=== PATIENT | female | born 1990 | race Caucasian/White ===

== ENCOUNTER 2018-02-13 03:07 | Inpatient (IN) | payer OTHER ==
--- NOTE | 2018-02-13 08:49 | HP ---
General Information - Reason for Visit SROM and contractions - General Information Maternal Age: 27 Grav: 1 Para: 0 SAB: 0 IEA: 0 Estimated Due Date: 02/12/18 Determined By: Early Ultrasound Maternal Blood Type and Rh: A Negative - Results this Serology/RPR Result: Non-Reactive Rubella Result: Immune HBsAg Result: Negative HIV Result: Negative GBS Culture Result: Negative Past Medical History Delivery History: See Records - primiparous Pertinent Past Medical History: See Records - vasovagal seizures Pertinent Past Surgical History: None Pertinent Family History: Non-Contributory - Antepartal Records Antepartal Records: Reviewed, Uncomplicated - Rh- Review of Systems Constitutional: Uncomfortable - coping well CV Complaint: No Respiratory: Shortness of Breath: No Gastrointestinal: No Nausea/Vomiting, Normal Bowel Movement Genitourinary: Leaking Fluid, No Dysuria, No Bleeding Musculoskeletal: No Epigastric Pain, Contractions Neurological: No Headache, No Visual Changes Movement: Normal Exam Allergies/Adverse Reactions: Allergies Sulfa (Sulfonamide Antibiotics) Allergy (Verified 02/13/18 07:42) Unknown Reaction Details Vital Signs 02/13/18 03:32 Temperature 97.4 F Pulse Rate 60 Respiratory 16 Rate Blood Pressure 144/99 (mmHg) O2 Sat by Pulse 100 Oximetry - Measurements Height: 5 ft 7 in Weight: 68.039 kg Weight in lbs: 150.159003 Body Mass Index (BMI): 23.5 Pre- Weight: 48.988 kg Weight Gained This : 42 lbs and 0 ozs - Exam Breast: Breast Exam Deferred CVA: No CVA Tenderness Extremities: No Edema Heart: Normal Rhythm/Heart Sounds HEENT: No Significant Findings Lungs: Clear Bilaterally Rectal: Rectal Exam Deferred Reflexes: DTR 2+ Thyroid: No Thyromegaly - Abdominal Exam Abdomen Exam: Non-Tender, Fundal Height Consistent with Dates Targeted Exam Findings See L&D Outpatient Visit Provider Note for Findings: N/A Estimated Weight: 6.5# Membrane Status: SROM Amniotic Fluid Evaluation: Gross Rupture - cervical exam deferred EFM Findings - External Monitor Findings Baseline Heart Rate: 130 External Monitor Findings: Accelerations Present, No Pattern of Variable or Late Decelerations, Variability Moderate, Baseline Stable Contractions: Regular - 2-4 , Mild, Moderate, < 45 Seconds, 45-90 Seconds Assessment/Plan - Assessment 27 year old at 40 1/7 w/ SROM, no evidence of acidemia - Plan Plan: Admit - Anticipate Vaginal Delivery - Date/Time of Admission Date of Admission: 02/13/18 Time of Admission: 03:51
--- NOTE | 2018-02-13 11:35 | PN ---
Progress Note - Progress Note Date of Service: 02/13/18 SOAP: Subjective: [Feeling UCs are getting stronger, would like VE to assess for possible epidural ] Objective: [VSS VE 2cm/90%/vertex 0 FHT 155 via doppler] Assessment: [early labor] Plan: [Encourage movement, position changes. Discussed possibility of nubain/ phenergan if desires rest. Would like to try nitrous for now]
[2018-02-13 12:30] LABS: ABS Basophils 0.1 10^3/ul (0-0.2); ABS Eosinophils 0 10^3/ul (0-0.6); ABS Monocytes 0.8 10^3/ul (0-0.8); ABS Neutrophils 8.3 10^3/ul (1.5-7.7); ABS Nucleated RBC 0 10^3/ul; Eosinophil % 0.1 % (0-6); Hematocrit 38 % (35-47); Hemoglobin 13.7 g/dl (12.0-16.0); Lymphocyte % 10.1 % (25-47); Mean Corpuscular HGB Conc 36 g/dl (31-36); Mean Corpuscular Hemoglobin 35 pg (27-31); Mean Corpuscular Volume 96 fL (80-97); Mean Platelet Volume 8.9 um3 (7.4-10.4); Nucleated Red Blood Cells % 0; Platelet Count 177 10^3/ul (150-450); Red Blood Count 3.98 10^6/ul (4.00-5.40); Red Cell Distribution Width 13 % (10.5-15); White Blood Count 10.3 10^3/ul (3.5-10.8)
--- NOTE | 2018-02-13 15:01 | PN ---
Progress Note - Progress Note Date of Service: 02/13/18 SOAP: Patient desires VE, would like to consider epidural. Reports UCs are stronger. Had a run of some "closer together", reporting approx Q3-5 min. Tried nitrous for a while, found it didn't work "as well as I would have hoped" Has been moving around in room and ambulating hallways. BP 138/96 FHT 135 via doppler VE 3cm/90/+1 Plan:Discussed option of IV narcotics for therapeutic rest. Continue with nitrous, tub, other conform measures with partner and textile knitter. . Consider SEAN if not coping, encourage frequent position changes until then. Recheck in 2-4 hours or sooner if indicated.
--- NOTE | 2018-02-13 17:22 | PN ---
Progress Note - Progress Note Date of Service: 02/13/18 SOAP: Subjective: [Contractions stronger, feels like she isn't coping and needs rest. Has been using Nitrous but feels it isn't helping her much anymore. Would like labor epidural.] Objective: [BP 133/88, afebrile FHT 145, +accels, no decels, mod chrissie VE deferred] Assessment: [Active labor] Plan: [Anesthesia paged]
[2018-02-13] MEDS ORDERED: fentaNYL* 50 MCG/ML 2 ML VIAL (100 MCG VIAL) ONE (17:27)
[2018-02-13] MEDS ORDERED: OBEPIDURAL* 250 ML EPIDURAL ONE (17:27)
[2018-02-13] MEDS ORDERED: Phenylephrine IV* 40 MCG/ML 10 ML SYRINGE IV PUSH PRN ×2 (18:26)
[2018-02-13] MEDS ORDERED: Sodium Citrate/Citric Acid* 15 ML UDC PO PRN (18:26)
[2018-02-13] MEDS ORDERED: Famotidine TAB* 20 MG PO PRN (18:26)
[2018-02-13] MEDS ORDERED: OBEPIDURAL* 250 ML EPIDURAL SCH (19:00)
[2018-02-13] MEDS ORDERED: Oxytocin in LR* 20 UNITS/1,000 ML BAG IVPB ONE (21:28)
--- NOTE | 2018-02-13 21:30 | PN ---
Progress Note - Progress Note Date of Service: 02/13/18 SOAP: Subjective: [Pt very comfortable with epidural, has been sleeping some.] Objective: [Vss, afebrile Contractions Q5-8 FHT 145, mod chrissie, +accels, isolated decels, relieved with position change VE 4cm/100/+1] Assessment: [Early labor, labor slowed by epidural] Plan: [PARQ discussion pitocin for augmentation of labor; patients agree. Plan to start low dose and monitor.]
[2018-02-13] MEDS ORDERED: Oxytocin in LR* 20 UNITS/1,000 ML BAG IVPB SCH (22:00)
[2018-02-14] MEDS ORDERED: Witch Hazel PAD* JAR TOPICAL PRN (03:56)
[2018-02-14] MEDS ORDERED: Glycerin ADULT SUPP PR PRN (03:56)
[2018-02-14] MEDS ORDERED: Acetaminophen TAB* 325 MG PO PRN (03:56)
[2018-02-14] MEDS ORDERED: Dibucaine 1% 28.35 GM TUBE PR PRN (03:56)
[2018-02-14] MEDS ORDERED: RHO D Immune Globulin (HUMAN)* 300 MCG = 1,500 I.U. INJ IM ONE (03:56)
[2018-02-14] MEDS ORDERED: Oxytocin in LR* 20 UNITS/1,000 ML BAG IVPB SCH (04:00)
--- NOTE | 2018-02-14 04:19 | PN ---
Progress Note - Progress Note Date of Service: 02/13/18 - Note time 0015 SOAP: Subjective: [Feeling more pressure with and between contractions.] Objective: [Pit @ 6 VSS FHT 140, +accels, no decels, mod chrissie VE 9.5cm/100/+1] Assessment: [Active labor] Plan: [Discussed laboring down to let cervix reach complete dilation. Breathe through UCs as needed. Reassess with increased pressure/urge to push]
--- NOTE | 2018-02-14 04:36 | PROCNOTE ---
[facility] OB: Delivery Note - Delivery A Date of : 02/14/18 Time of : 03:08 [place] Sex: Female Score 1 Minute: 9 Score 5 Minutes: 9 Gestational Age in Weeks and Days at Delivery: 40 Weeks and 2 Days Delivery Method: Spontaneous Vaginal Labor: Spontaneous Did Patient attempt ?: N/A, No Previous Amniotic Fluid: Clear Anesthesia/Analgesia: CEI for Labor Anesthesia Comment: Dr Jalloh Delivered By: Roseann Segura - Nursery Level of Nursery: Regular/Bedside - Perineum Perineal Injury: 2nd Degree Perineal Injury Comment: Repaired 3-0 Rapide Perineal Repair: By Delivering Practioner - Events Delivery Events of Note: Pitocin During Labor, ROM > 24 Hours - Additional Delivery Notes Additional Delivery Notes: Pt admitted with ROM. Early labor progressed slowly until patient received epidural with excellent pain relief. Pitocin was started when contractions slowed with fast progression to complete. LOL 11'17", pushed 1 hr, 23 min. Baby born OA to JOEL with compound posterior hand by chin. To maternal abdomen with spontaneous cry. Cord doubly clamped and cut by FOB once pulsations ceased. Placenta delivered with gentle cord traction @ 0317. Repair as above. Fundus firm to massage with pitocin infusing. Baby at breast to initiate . Mother and baby stable.
[2018-02-14] MEDS: Ibuprofen TAB* 600 MG PO PRN ×3 (07:58→20:54)
[2018-02-14] MEDS: Docusate CAP* 100 MG PO SCH ×3 (07:59→20:54)
[2018-02-15] MEDS: Ibuprofen TAB* 600 MG PO PRN ×4 (03:34→22:47)
[2018-02-15 06:44] LABS: ABS Basophils 0 10^3/ul (0-0.2); ABS Eosinophils 0 10^3/ul (0-0.6); ABS Lymphocytes 1.6 10^3/ul (1.0-4.8); ABS Monocytes 0.7 10^3/ul (0-0.8); ABS Nucleated RBC 0 10^3/ul; Eosinophil % 0.7 % (0-6); Hematocrit 29 % (35-47); Hemoglobin 10.4 g/dl (12.0-16.0); Lymphocyte % 21.8 % (25-47); Mean Corpuscular HGB Conc 36 g/dl (31-36); Mean Corpuscular Hemoglobin 35 pg (27-31); Mean Corpuscular Volume 98 fL (80-97); Mean Platelet Volume 8.1 um3 (7.4-10.4); Nucleated Red Blood Cells % 0.1; Platelet Count 132 10^3/ul (150-450); Red Blood Count 2.98 10^6/ul (4.00-5.40); Red Cell Distribution Width 13 % (10.5-15); White Blood Count 7.3 10^3/ul (3.5-10.8)
[2018-02-15] MEDS: Ferrous Gluconate TAB* 324 MG TAB PO SCH ×2 (09:35→19:37)
[2018-02-15] MEDS: Docusate CAP* 100 MG PO SCH ×3 (09:35→19:37)
--- NOTE | 2018-02-15 15:01 | PTEDU ---
Patient Name: DENILSON GALAN ADAMA DENILSON selected video: Never Ever Shake a Baby to view on 02/15/2018 at 3:01:29 PM from [email or web address]
[2018-02-16] MEDS: Ibuprofen TAB* 600 MG PO PRN ×2 (06:02→11:52)
[2018-02-16] MEDS: Ferrous Gluconate TAB* 324 MG TAB PO SCH (08:40)
[2018-02-16] MEDS: Docusate CAP* 100 MG PO SCH ×2 (08:40→14:19)
[2018-02-16 10:01] VITALS: BP 114/65
--- NOTE | 2018-02-16 10:20 | PTEDU ---
Patient Name: DENILSON GALAN DENILSON GALAN selected video: Follow Me Mum: [facility] to Successful to view on 02/16 at 10:20:01 AM from [email or web address]
[2018-02-16] MEDS ORDERED: Tetan/Diph/Pertus SYR(Tdap)* 0.5 ML SYR(BOOSTRIX) use SYR IM ONE ×2 (14:09→14:17)
== END 2018-02-16 14:35 | disposition home or self-care (01) | DRG 775 ==
LOC: MCHOBOUT 03:07 → MCHOB 03:51
PROVIDERS: ADMIT Midwife; ATTEND Midwife
PROC: 10E0XZZ Delivery of Products of Conception, External Approach (ICD-10-PCS; principal; 2018-02-14)
PROC: 0KQM0ZZ Repair Perineum Muscle, Open Approach (ICD-10-PCS; 2018-02-14)
PROC: 4A1HXCZ Monitoring of Products of Conception, Cardiac Rate, External Approach (ICD-10-PCS; 2018-02-14)
DX: O48.0 Post-term pregnancy (principal); O32.6XX0 Maternal care for compound presentation, not applicable or unspecified; Z3A.40 40 weeks gestation of pregnancy; O70.1 Second degree perineal laceration during delivery; O76 Abnormality in fetal heart rate and rhythm complicating labor and delivery; O90.81 Anemia of the puerperium; Z67.11 Type A blood, Rh negative; Z88.2 Allergy status to sulfonamides; Z37.0 Single live birth
CPT/HCPCS: 36415; 85025; 86850; 86900; 86901; 90715; A9270-GY; J3010